=== PATIENT | female | born 1965 | race Caucasian/White ===

== ENCOUNTER → 2016-02-22 17:03 | Outpatient (CLI) | payer BC ==
[2015-03-11 07:53] VITALS: BMI 27.9
[~2016-02-22 17:03] MED LIST: ARMOUR THYROID120 MG PO; COMBIGAN OPHT DR5 ML EACH EYE; DOXYCYCLINE HY100 M2 PO; EFFEXOR75 MG PO; HYDROCODON-ACE1 EAC7 PO; IBUPROFEN600 MG PO; L-GLUTAMINE; MULTI-DAY VITAM1 TAB PO; OMEGA-3100 MG PO; PROBIOTIC1 EAC1 PO; SYNTHROID50 MCG PO; TURMERIC
== END | disposition home or self-care (01) ==
LOC: D.MAMMO 10:30
DX: R92.8 Other abnormal and inconclusive findings on diagnostic imaging of breast (principal)

== ENCOUNTER → 2017-07-24 23:54 | Outpatient (CLI) | payer BC ==
[2015-03-11 07:53] VITALS: BMI 27.9
[~2017-07-24 23:54] MED LIST changes: +COSOPT EYE DROPS5 ML EACH EYE; +PREMPRO 0.45-1.1 TAB PO
== END | disposition home or self-care (01) ==
LOC: D.MAMMO 14:30
DX: Z12.31 Encounter for screening mammogram for malignant neoplasm of breast (principal)

== ENCOUNTER 2017-07-26 06:35 | Day surgery (SDC) | payer BC ==
[2017-07-25 09:14] LABS: BASOPHILS 0.7 % (0-2); HEMATOCRIT 43.7 % (36.0-48.0); HEMOGLOBIN 14.6 g/dL (12-16); IMMATURE GRANULOCYTES 0.4 % (0-5); LYMPHOCYTES 32.1 % (15-50); MCH 29.7 pg (26.0-34.0); MCHC 33.4 g/dL (31.0-37.0); MEAN PLATELET VOLUME 9.3 fL (7.4-10.4); NEUTROPHILS 53.8 % (40-80); PLATELET COUNT 349 10x3/uL (130-400); RBC 4.91 10x6/uL (4.00-5.40); RDW 13.7 % (11.5-14.5); WBC 8.2 10x3/uL (4.8-10.8)
[~2017-07-26] VITALS: Ht 180.3 cm; Wt 76.2 kg
--- NOTE | ~2017-07-26 | OP ---
PATIENT NAME: LIBRA RANDHAWA MEDICAL RECORD: [id number] :65 LOCATION:[facility] ADMISSION DATE: SURGEON: AUGUST CREWS MD DATE OF OPERATION: 07/26/2017 PREOPERATIVE DIAGNOSIS: Postmenopausal bleeding. POSTOPERATIVE DIAGNOSIS: Postmenopausal bleeding. PROCEDURE: Hysteroscopy, dilation and curettage. SURGEON: August Crews MD ESTIMATED BLOOD LOSS: Minimal. INTRAVENOUS FLUIDS: Per anesthesia record. HYSTEROSCOPIC FLUID LOSS: Less than 100 cc of 0.9 normal saline. SPECIMENS: Endometrial curettings. FINDINGS: Grossly normal-appearing endometrial and endocervical canals, grossly normal-appearing external genitalia and cervix. COMPLICATIONS: None apparent. DESCRIPTION OF PROCEDURE: The patient was taken to the operating room, where general anesthesia was achieved without any difficulty. The patient was then prepped and draped in normal sterile fashion in the dorsal lithotomy position in the [facility]. Following prep and drape, the bladder was drained of approximately 10 cc of clear yellow urine. At this point, a Graves speculum was placed into the vagina, and cervix was identified and grasped on its anterior lip with a single-tooth tenaculum. The uterus was sounded to approximately 8 cm. At this point, the patient was dilated to approximately 6 mm and the hysteroscope was placed into the endometrial canal without difficulty. Survey of the endometrial canal was performed, at which point a #1 curette was then used to gently perform curettage from all 4 quadrants of the uterus. The tenaculum was then removed and then the speculum. The patient tolerated the procedure well, was transported to postanesthesia recovery stable without incident. TRANSINT:[id number] Voice Confirmation ID: [id number] DOCUMENT ID: [id number] AUGUST CREWS MD at 1708 CC: [id number] DICTATION DATE: 07/28/17 0856 READINESS PARAPROFESSIONAL: 07/28/[address] [facility] 07/26/[address] [id number]
[2017-07-26 08:20] VITALS: BP 120/69; Ht 180.3 cm; Wt 76.2 kg
== END 2017-07-26 12:05 | disposition home or self-care (01) ==
LOC: D.OPS 06:35
PROVIDERS: Obstetrics & Gynecology
DX: N95.0 Postmenopausal bleeding (principal); Z01.812 Encounter for preprocedural laboratory examination

== ENCOUNTER → 2018-08-29 10:00 | Outpatient (CLI) | payer BC ==
[2017-07-26 08:20] VITALS: BMI 23.4
== END | disposition home or self-care (01) ==
LOC: D.MAMMO 10:00
PROVIDERS: ATTEND Emergency Medicine
DX: Z12.31 Encounter for screening mammogram for malignant neoplasm of breast (principal)

== ENCOUNTER 2019-09-11 19:00 | Outpatient (CLI) | payer BC ==
[2017-07-26 08:20] VITALS: BMI 23.4
== END 2019-09-11 23:59 | disposition home or self-care (01) ==
LOC: D.MAMMO 19:00
PROVIDERS: ATTEND Emergency Medicine
DX: Z12.31 Encounter for screening mammogram for malignant neoplasm of breast (principal)